=== PATIENT | male | born 1980 | race African-American/Black ===

== ENCOUNTER 2018-12-14 18:16 | Emergency (ER) | payer OTHER ==
--- NOTE | 2018-12-14 18:52 | PDOC ---
Rapid Medical Evaluation Chief Complaint: Pain Time Seen by Provider: 12/14/18 18:50 Medical Evaluation: Allergies Allergy/AdvReac Type Severity Reaction Status Date / Time No Known Allergies Allergy Verified 03/26/16 17:49 12/14/18 18:51 I did a brief in person evaluation on this patient. CC: left knee pain HPI: Pt complains of left knee pain and edema x 4 days. Denies injury or trauma. PE: Skin: Clear Lungs: Clear Heart:RRR MS: left anterior knee pain and edema. Neuro: alert Psych: appropriate affect. I have ordered: left knee xray Pt will proceed to [facility] for further evaluation. Discharge Disposition - Diagnosis Knee pain Qualifiers: Chronicity: acute Laterality: left Qualified Code(s): M25.562 - Pain in left knee - Referrals - Patient Instructions - Post Discharge Activity
[2018-12-14 18:53] VITALS: BP 106/67; PULSE 96; TEMP 98.3; BMI 29.7
--- NOTE | 2018-12-14 21:36 | PDOC ---
History of Present Illness - General Chief Complaint: Pain Stated Complaint: LEFT KNEE PAIN Time Seen by Provider: 12/14/18 18:50 - History of Present Illness Initial Comments: 12/14/18 21:30 38-year-old male without comorbidities presents for evaluation of left knee pain. Atraumatic an onset over the last 3 days. Past History - Past Medical History Allergies/Adverse Reactions: Allergies Allergy/AdvReac Type Severity Reaction Status Date / Time No Known Allergies Allergy Verified 03/26/16 17:49 Home Medications: Ambulatory Orders clonazePAM [Klonopin -] 1 mg PO BID 03/04/16 Citalopram Hydrobromide [Celexa -] 20 mg PO DAILY 03/26/16 Risperidone [Risperdal -] 2 mg PO BID #60 tablet 04/03/16 hydrOXYzine PAMOATE [Vistaril -] 50 mg PO Q4H PRN #90 capsule 04/03/16 traZODone HCL [Desyrel -] 100 mg PO HS #30 tablet 04/03/16 Risperidone [Risperdal -] 1 mg PO BID #60 tablet 12/01/18 traZODone HCL [Trazodone HCl] 50 mg PO HS #30 tablet 12/01/18 Doxycycline Hyclate 100 mg PO BID #60 tablet 12/14/18 Anemia: No Asthma: No Cancer: No Cardiac Disorders: No CVA: No COPD: No CHF: No Dementia: No Diabetes: No GI Disorders: No Disorders: No HTN: No Hypercholesterolemia: No Kidney Stones: No Liver Disease: No Seizures: No Thyroid Disease: No - Surgical History Abdominal Surgery: No Appendectomy: No Cardiac Surgery: No Cholecystectomy: No Lung Surgery: No Neurologic Surgery: No Orthopedic Surgery: No - Reproductive History Testicular Surgery: No - Immunization History Immunization Up to Date: No - Suicide/Smoking/Psychosocial Hx Smoking History: Current every day smoker Have you smoked in the past 12 months: No Number of Cigarettes Smoked Daily: 12 Information on smoking cessation initiated: No 'Breaking Loose' booklet given: 03/03/16 Hx Alcohol Use: No Drug/Substance Use Hx: No Substance Use Type: Marijuana (daily use) Hx Substance Use Treatment: Yes Review of Systems - Review of Systems Constitutional: No: Chills, Fever, Malaise, Night Sweats Musculoskeletal: Yes: Joint Pain Integumentary: No: Pruritus, Rash *Physical Exam - Vital Signs Last Vital Signs Temp Pulse Resp BP Pulse Ox 98.3 F 96 H 18 106/67 97 12/14/18 18:51 12/14/18 18:51 12/14/18 18:51 12/14/18 18:51 12/14/18 18:51 - Physical Exam Comments: 12/14/18 21:30 Left knee skin color and temperature are normal. There is a large amount of swelling about the left knee. Range of motion 0-90 beyond that causes pain. His extensor mechanism is intact. There is no evidence of instability or gross sensorimotor deficits there is no joint line tenderness. Normal range of motion of the hip and ankle. Is neurovascularly intact. Medical Decision Making - Medical Decision Making 12/14/18 21:31 Patient has been waiting over 3 hours at this point for the proper equipment aspirate the knee. [facility] was called multiple times and they have not shown up with 60 mL syringes. I will discharge patient have her follow-up with orthopedics. 8 onset of intra-articular effusion I will start him on a course of doxycycline at this point. I will also have him follow-up with his primary care physician. I will draw line and tickborne illness panel 12/14/18 22:09 [facility] came through with the correct syringe under aseptic technique 80 mL of cera [place] is fluid was aspirated from the left knee a dry sterile dressing and a compression wrap a place. The patient felt relief after the aspiration. Tickborne workup. As well as crystals and cell count *DC/Admit/Observation/Transfer Diagnosis at time of Disposition: Knee effusion, left Knee pain Qualifiers: Chronicity: acute Laterality: left Qualified Code(s): M25.562 - Pain in left knee - Discharge Dispostion Disposition: HOME Condition at time of disposition: Stable Decision to Admit order: No - Prescriptions Prescriptions: Doxycycline Hyclate 100 mg PO BID #60 tablet - Referrals Referrals: Greg Aldrich DO [Staff Physician] - Kimberly Workman MD [Staff Physician] - - Patient Instructions Additional Instructions: Your being treated for Lyme disease. Test were drawn as well as other tickborne illnesses. Please follow-up with internal medicine in one to 2 days for further evaluation and treatment options as well as results for your blood work. Also follow-up with orthopedic surgery in 1-2 days for further evaluation and treatment. Please do not sleep with a compressive Jean wrap. Return to the emergency room should symptoms worsen keep the Band-Aid on for the next 24 hours after which he may take it off and shower with soap and water do not soak the knee. - Post Discharge Activity
[2018-12-14 22:14] LABS: BASO % 0.7 % (0-2.0); EOS % 1.3 % (0-4.5); HEMATOCRIT 38.4 % (35.4-49); HEMOGLOBIN 12.5 GM/dL (11.7-16.9); LYMPH % 20.2 % (8-40); MCHC 32.5 g/dl (32.0-35.9); MEAN CELL VOLUME 67.8 fl (80-96); MEAN PLT VOLUME 9.1 fl (7.5-11.1); NEUT % 67.8 % (42.8-82.8); PLATELET COUNT 125 K/MM3 (134-434); RBC 5.66 M/mm3 (4.00-5.60); RDW 19.3 % (11.9-15.9); WHITE BLOOD COUNT 10.8 K/mm3 (4.0-10.0)
[2018-12-14 23:13] LABS: ALBUMIN 3.6 g/dl (3.4-5.0); ALK PHOS 77 U/L (45-117); ANION GAP 7 MMOL/L (8-16); BILIRUBIN,TOTAL 0.4 mg/dL (0.2-1); BLOOD UREA NITROGEN 12 mg/dL (7-18); CHLORIDE 105 mmol/L (98-107); CO2 26 mmol/L (21-32); CREATININE 0.8 mg/dL (0.55-1.3); GLUCOSE,RANDOM 87 mg/dL (74-106); SGOT/AST 25 U/L (15-37); SGPT/ALT 57 U/L (13-61); SODIUM 138 mmol/L (136-145); TOT PROT 7.8 g/dl (6.4-8.2)
[2018-12-15 03:09] LABS: SYNOVIAL FLUID SOURCE SYNOVIAL
[2018-12-15 04:22] LABS: SYNOVIAL FLUID LYMPHOCYTES 2 %; SYNOVIAL FLUID MONOCYTES 4 %; SYNOVIAL FLUID NEUTROPHILS 92 %
[2018-12-15 04:23] LABS: SYNOVIAL FLUID MACROPHAGES 2 %
[2018-12-17 15:20] LABS: E. chaff IgG Negative (Neg:<1:64)
[2018-12-17 17:12] LABS: BABESIA MICROTI ANTIBODY IGG <1:10 (Neg:<1:10); BABESIA MICROTI ANTIBODY IGM <1:10 (Neg:<1:10)
== END 2018-12-14 23:11 | disposition home or self-care (01) ==
LOC: JERFT 18:16
PROC: 0S9D3ZZ Drainage of Left Knee Joint, Percutaneous Approach (ICD-10-PCS; principal; 2018-12-14)
DX: M25.462 Effusion, left knee (principal)
CPT/HCPCS: 20610; 36415; 73564-TC-LT-FY; 80053; 85025; 86618; 86666; 86753; 87798; 89051; 99282-25

== ENCOUNTER 2019-02-03 21:56 | Emergency (ER) | payer OTHER | END 2019-02-04 01:59 | disposition home or self-care (01) | LOC: JER 02-04 01:59 → JERFT 21:56 | PROC: 3E0233Z Introduction of Anti-inflammatory into Muscle, Percutaneous Approach (ICD-10-PCS; principal; 2019-02-03) | DX: M25.561 Pain in right knee (principal); M25.562 Pain in left knee; F25.9 Schizoaffective disorder, unspecified; F41.9 Anxiety disorder, unspecified; F32.9 Major depressive disorder, single episode, unspecified ==

== ENCOUNTER 2020-12-23 23:08 | Emergency (ER) | payer OTHER ==
[2020-12-24] VITALS: BP 126/87; PULSE 104; TEMP 98.6; BMI 30.1
[2020-12-24] MEDS ORDERED: ERYTHROMYCIN 0.5% OPHTHALMIC OINTMENT 3.5 GM TUBE OD ONE (01:08)
[2020-12-24] MEDS ORDERED: CEPHALEXIN MONOHYDRATE 500 MG CAPSULE (UD) PO ONE (01:08)
[2020-12-24] MEDS ORDERED: ERYTHROMYCIN 0.5% OPHTHALMIC OINTMENT 3.5 GM TUBE ONE (01:10)
[2020-12-24] MEDS ORDERED: CEPHALEXIN MONOHYDRATE 250 MG CAPSULE (FP) ONE (01:11)
[2020-12-24] MEDS ORDERED: DEXAMETHASONE LIQUID 0.5 MG/5 ML PO ONE (01:13)
[2020-12-24] MEDS ORDERED: DEXAMETHASONE SOD PHOSPHATE 10 MG/1 ML VIAL ONE (01:13)
== END 2020-12-24 01:20 | disposition home or self-care (01) ==
LOC: JER 23:08
DX: L03.213 Periorbital cellulitis (principal); L03.811 Cellulitis of head [any part, except face]
CPT/HCPCS: 82962; 99283-25